=== PATIENT | male | born 1985 | race Caucasian/White ===

== ENCOUNTER 2024-02-09 04:54 | Emergency (ER) | payer BC, SELFPAY ==
[2024-02-09 05:13] VITALS: BP 128/81; PULSE 123; RESP 24; TEMP 37.1; O2SAT 98; BMI 38.3
--- NOTE | 2024-02-09 05:38 | ED_ITS ---
HPI - General Adult General Chief complaint: Fall/Minor Trauma Stated complaint: Fell down stairs. Time Seen by Provider: 02/09/24 05:19 Source: patient and family Mode of arrival: ambulatory Limitations: no limitations History of Present Illness HPI narrative: 38-year-old male comes into the emergency department mainly because he wanted his son examined. The patient was caring his 5-day-old son when the patient slipped on the last step, falling forward. He was able to twist to the side intake most of the force of the fall on his right torso and flexed left knee to avoid injury to the child. Child is examined in separate documented encounter and is fine. Patient is appropriately remorseful, the fall was certainly accidental. No alcohol. Patient is not had any seizure, syncope. He has mild pain at the anterior glenohumeral joint, left suprapatellar area and interphalangeal joint of the left great toe. No other areas of injury. No shortness of breath, chest pain, abdominal pain. He did not try taking any Tylenol or ibuprofen prior to the ED. No vision change, no headache no neurological changes. He is not anticoagulated. No other areas of concern today. Reports that his past medical history is benign, no major long-term health problems or home medications. ROS is notable for the musculoskeletal symptoms as above only. Otherwise denies generalized, neurological, other musculoskeletal, skin or cardiac changes. Related Data Home Medications Medication Instructions Recorded Confirmed No Known Home Medications 02/09/24 02/09/24 Allergies Allergy/AdvReac Type Severity Reaction Status Date / Time No Known Drug Allergies Allergy Verified 02/09/24 05:13 Exam Const: Vital Signs, click to edit/add: Vital Signs - 24 hr 02/09/24 05:13 Temperature 98.8 F Pulse Rate [Pulse Oximeter] 123 H Respiratory Rate 24 Blood Pressure [Le ft Forearm] 128/81 Pulse Oximetry 98 Oxygen Delivery Me thod Room Air Documenting provider has reviewed patient's vital signs: yes Common normals: no apparent distress and alert General appearance: cooperative and well kempt Orientation/consciousness: Yes awake HENMT: Common normals: normocephalic Head and scalp: normocephalic Face and sinus: normal facial exam Mouth: oral and palatal mucosa normal Eye: Common normals: EOMs intact bilaterally and conjunctivae normal General eye: normal appearance of both eyes Conjunctiva: conjunctiva(e) normal Neck & C-Spine: Common normals: full ROM and no lymphadenopathy Chest: Common normals: inspection of chest normal Resp: Common normals: normal respiratory effort, no use of accessory muscles and clear to auscultation bilaterally Effort & inspection: able to speak in complete sentences Auscultation: clear to auscultation bilaterally Cardio: Common normals: regular rate, regular rhythm, S1 normal heart sound, S2 normal heart sound and no murmurs Rate: regular rate Rhythm: regular rhythm Heart sounds: S1 normal and S2 normal GI: Common normals: Normal to inspection, nondistended, normoactive bowel sounds present, soft to palpation, non-tender, no hepatosplenomegaly and no masses Palpation: soft and no hepatosplenomegaly Back & Pelvis: Common normals: thoracic and lumbar spine normal to inspection Extremity: Common normals: normal to inspection, full ROM and normal capillary refill Other: Right shoulder with normal range of motion. Normal rotator cuff. Normal strength. No swelling or deformity. No point bony tenderness or bruising. Left knee with slight abrasion to the dorsal surface of the patella. No effusion. Normal range of motion. No instability. No joint line tenderness. No swelling. Varus and valgus maneuvers are normal. Minimal bruising medial and superior to the patella. Left foot examined with normal range of motion, no bruising, no deformity, no point tenderness. Normal range of motion of toes. Normal nails. Good pulses with normal capillary refill. Neuro: Sensorium/orientation: awake and alert Speech: speech normal Motor exam: strength 5/5 throughout Psych: Appearance: well kempt Activity/motor behavior: appropriate eye contact Insight: insight good Judgement: judgment good Skin: Common normals: no rashes or lesions noted General skin exam: no rashes or lesions noted Course Course ED Course: Exams are benign, family reassured. No imaging recommended. Discussed Tylenol, ibuprofen as needed for symptomatic care. Reassured. There are no signs of non accidental trauma here. Patient's spouse was just very nervous over potential injury to the baby and they all seem very thankful to be reassured. Follow-up for this patient on an as-needed basis only if symptoms fail to improve within a couple of weeks. Vital Signs Vital signs: Initial Vital Signs Temperature 98.8 F 02/09/24 05:13 Temperature Source Temporal Artery Scan 02/09/24 05:13 Pulse Rate 123 H 02/09/24 05:13 Pulse Rhythm Regular 02/09/24 05:13 Respiratory Rate 24 02/09/24 05:13 Blood Pressure 128/81 02/09/24 05:13 Blood Pressure Mean 96 02/09/24 05:13 Blood Pressure Position Sitting 02/09/24 05:13 Pulse Oximetry 98 02/09/24 05:13 Oxygen Delivery Method Room Air 02/09/24 05:13 Vital Signs Temperature 98.8 F 02/09/24 05:13 Pulse Rate 123 H 02/09/24 05:13 Respiratory Rate 24 02/09/24 05:13 Blood Pressure 128/81 02/09/24 05:13 Pulse Oximetry 98 02/09/24 05:13 Oxygen Delivery Method Room Air 02/09/24 05:13 Temperature 98.8 F 02/09/24 05:13 Pulse Rate 123 H 02/09/24 05:13 Respiratory Rate 24 02/09/24 05:13 Blood Pressure 128/81 02/09/24 05:13 Pulse Oximetry 98 02/09/24 05:13 Oxygen Delivery Method Room Air 02/09/24 05:13 Discharge Plan Discharge Clinical Impression: Contusion of knee, Sprain of toe, Sprain of right shoulder Patient Disposition: Home w/ Parent or Adult Condition: Stable Instructions: Contusion in Adults (ED) Additional Instructions: As we discussed, you have a sprain to the toe, knee and shoulder area. None of these seem to have any signs of fracture, ligament tear or tendon injury. I would take ibuprofen 600 mg every 6 hours and or Tylenol 1000 mg every 6 hours as needed for discomfort. Apply ice if needed. These falls are very common, especially when you are sleeping erratically with a new baby. Try not to feel guilty. No strenuous activity for the next 24 hours, think should be markedly better in 4-5 days. Basic household and cares are fine. If you have persistent vomiting, seizures, loss of consciousness or other severe pain, you should come back to emergency room. Activity Level: Activity as Tolerated Discharge Diet: Regular Prescriptions: No Action No Known Home Medications Follow Up/Referrals: Delroy Meraz MD [Referring] - Stand [facility]one [facility]
== END 2024-02-09 06:03 | disposition home or self-care (01) ==
LOC: ED 05:50
PROVIDERS: Emergency Provider Family Medicine
DX: S80.02XA Contusion of left knee, initial encounter (principal); S43.401A Unspecified sprain of right shoulder joint, initial encounter; W10.9XXA Fall (on) (from) unspecified stairs and steps, initial encounter
CPT/HCPCS: 99283

== ENCOUNTER 2025-06-01 13:19 | Outpatient (CLI) | payer BC, SELFPAY | END 2025-06-01 13:20 | disposition home or self-care (01) | PROVIDERS: PCP Internal Medicine; Visit Provider Internal Medicine | DX: E66.9 Obesity, unspecified (principal) | CPT/HCPCS: 80053; 80061 ==